=== PATIENT | male | born 1940 | race Caucasian/White ===

== ENCOUNTER 2018-07-30 12:27 | Emergency (ER) | payer MEDICARE ==
[~2018-07-30] VITALS: Ht 175.3 cm; Wt 68.9 kg
--- NOTE | 2018-07-30 12:46 | NUR ---
FROM [facility], C/O GLF S/P DIZZINESS, -KO, + HEAD TRAUMA, NOTED NOSE SWELLING. NO SOB NOTED, WILL CONTINUE TO MONITOR.
[2018-07-30 13:03] LABS: BASOPHILS # (AUTO) 0.1 /CMM (0.0-0.2); EOSINOPHILS % (AUTO) 7.5 % (0.0-6.0); HEMATOCRIT 40 % (39-51); HEMOGLOBIN 13.9 g/dL (13.5-17.5); LYMPHOCYTES # (AUTO) 0.6 /CMM (0.8-4.8); MEAN CORPUSCULAR HGB CONC 35 g/dl (31.0-36.0); MEAN CORPUSCULAR VOLUME 95 fL (80-96); MONOCYTES # (AUTO) 0.5 /CMM (0.1-1.30); MONOCYTES % (AUTO) 6.7 % (2.0-12.0); NEUTROPHILS % (AUTO) 76.8 % (43.0-81.0); PLATELET COUNT (AUTO) 227 /CMM (150-450); RED BLOOD CELL COUNT(AUTO) 4.25 MIL/uL (4.5-6.0); WHITE BLOOD COUNT (AUTO) 7.9 K/uL (4.3-11.0)
--- NOTE | 2018-07-30 13:07 | NUR ---
PATIENT TAKEN TO CT.
--- NOTE | 2018-07-30 13:10 | NUR ---
RE EKG: PT HAS BEEN IN CT.
[2018-07-30 13:12] LABS: CALCIUM, SERUM 8.7 mg/dL (8.5-10.1); CARBON DIOXIDE 29 mmol/L (21-32); CHLORIDE 103 mmol/L (98-107); CREATININE 1.1 mg/dL (0.6-1.3); GLUCOSE 139 mg/dL (74-106); POTASSIUM 3.6 mmol/L (3.5-5.1); SODIUM SERUM 141 mmol/L (136-145); UREA NITROGEN, BLOOD 24 mg/dL (7-18)
[2018-07-30 13:17] LABS: ALANINE AMINOTRANSFERASE 14 U/L (12-78); ALBUMIN 3.6 g/dL (3.4-5.0); ALKALINE PHOSPHATASE 77 U/L (46-116); ASPARTATE AMINOTRANSFERASE 11 U/L (15-37); BILIRUBIN,DIRECT 0.1 mg/dL (0.0-0.2); BILIRUBIN,TOTAL 0.6 mg/dL (0.2-1.0)
--- NOTE | 2018-07-30 13:55 | NUR ---
Patient discharged to home in stable condition. Written and verbal after care instructions given. Patient verbalizes understanding of instruction.
[2018-07-30 13:56] VITALS: BP 155/90
== END 2018-07-30 13:57 | disposition home or self-care (01) ==
LOC: ER 12:30
DX: S02.2XXA Fracture of nasal bones, initial encounter for closed fracture (principal); G20 Parkinson's disease; I10 Essential (primary) hypertension; R42 Dizziness and giddiness; Z98.890 Other specified postprocedural states; W01.0XXA Fall on same level from slipping, tripping and stumbling without subsequent striking against object, initial encounter; Y93.01 Activity, walking, marching and hiking; Y92.89 Other specified places as the place of occurrence of the external cause; Y99.8 Other external cause status
CPT/HCPCS: 36415; 70450-TC; 70486-TC; 72125-TC; 80048-TC; 80076-TC; 84484-TC; 85025-TC

== ENCOUNTER 2018-07-30 20:23 | Emergency (ER) | payer MEDICARE ==
[~2018-07-30] VITALS: Ht 177.8 cm; Wt 68.5 kg
[2018-07-30 20:32] VITALS: BP 169/101
--- NOTE | 2018-07-30 22:06 | NUR ---
Patient discharged to home in stable condition. Written and verbal after care instructions given. Patient verbalizes understanding of instruction. Decided to leave without walker, risk and benefit explained.
== END 2018-07-30 22:06 | disposition home or self-care (01) ==
LOC: ER 20:24
DX: S02.2XXA Fracture of nasal bones, initial encounter for closed fracture (principal); S51.011A Laceration without foreign body of right elbow, initial encounter; I10 Essential (primary) hypertension; G20 Parkinson's disease; Z98.890 Other specified postprocedural states; W18.30XA Fall on same level, unspecified, initial encounter; Y93.01 Activity, walking, marching and hiking; Y92.091 Bathroom in other non-institutional residence as the place of occurrence of the external cause; Y99.8 Other external cause status
CPT/HCPCS: Z7502

== ENCOUNTER 2018-09-24 14:04 | Inpatient (IN) | payer MEDICARE ==
[~2018-09-24] VITALS: Ht 177.8 cm; Wt 66.7 kg
--- NOTE | 2018-09-24 14:10 | NUR ---
BIB [facility]. AAOX4. NAD, BREATHING EVEN AND UNLABORED. C/O FAINTING AND FELL ON HIS LEFT SIDE. PT DENIES CP, DENIES HITTING HIS HEAD. NO COMPLAINTS OF ANY PAIN. TO ER BED 1. MD AT BEDSIDE FOR EVAL.
--- NOTE | 2018-09-24 14:17 | NUR ---
EKG AT BEDSIDE
--- NOTE | 2018-09-24 14:20 | NUR ---
LAB AT BEDSIDE
[2018-09-24 14:28] LABS: BASOPHILS # (AUTO) 0.1 /CMM (0.0-0.2); BASOPHILS % (AUTO) 1.8 % (0.0-2.0); EOSINOPHILS % (AUTO) 8.3 % (0.0-6.0); HEMATOCRIT 36 % (39-51); HEMOGLOBIN 12.4 g/dL (13.5-17.5); LYMPHOCYTES # (AUTO) 0.8 /CMM (0.8-4.8); LYMPHOCYTES % (AUTO) 10.7 % (20.0-44.0); MEAN CORPUSCULAR HGB CONC 35 g/dl (31.0-36.0); MEAN CORPUSCULAR VOLUME 96 fL (80-96); MONOCYTES # (AUTO) 0.4 /CMM (0.1-1.30); MONOCYTES % (AUTO) 5.6 % (2.0-12.0); NEUTROPHILS # (AUTO) 5.7 /CMM (1.8-8.9); NEUTROPHILS % (AUTO) 73.6 % (43.0-81.0); PLATELET COUNT (AUTO) 253 /CMM (150-450); RED BLOOD CELL COUNT(AUTO) 3.74 MIL/uL (4.5-6.0); WHITE BLOOD COUNT (AUTO) 7.7 K/uL (4.3-11.0)
[2018-09-24] MEDS ORDERED: IV NS 0.9% 1,000 ML BAG IV ONE ×2 (14:30→15:00)
[2018-09-24 14:35] LABS: CALCIUM, SERUM 8.5 mg/dL (8.5-10.1); CARBON DIOXIDE 30 mmol/L (21-32); CHLORIDE 104 mmol/L (98-107); CREATININE 1.1 mg/dL (0.6-1.3); GLUCOSE 154 mg/dL (74-106); POTASSIUM 3.3 mmol/L (3.5-5.1); SODIUM SERUM 140 mmol/L (136-145); UREA NITROGEN, BLOOD 24 mg/dL (7-18)
--- NOTE | 2018-09-24 14:36 | NUR ---
PT TO CT
[2018-09-24 14:46] LABS: ALANINE AMINOTRANSFERASE 8 U/L (12-78); ALBUMIN 3.2 g/dL (3.4-5.0); ALKALINE PHOSPHATASE 83 U/L (46-116); ASPARTATE AMINOTRANSFERASE 10 U/L (15-37); BILIRUBIN,DIRECT 0.1 mg/dL (0.0-0.2); BILIRUBIN,TOTAL 0.5 mg/dL (0.2-1.0); TOTAL PROTEIN, SERUM 6.5 g/dL (6.4-8.2)
[2018-09-24] MEDS ORDERED: CARB1TAB40 PO (14:52)
[2018-09-24] MEDS ORDERED: LOVA20TA2 PO (14:52)
[2018-09-24] MEDS ORDERED: RASA1TAB4 PO (14:52)
[2018-09-24] MEDS ORDERED: FINA5TAB11 PO (14:52)
[2018-09-24] MEDS ORDERED: MEMA5TAB15 PO (14:52)
[2018-09-24] MEDS ORDERED: SERT50TA12 PO (14:52)
[2018-09-24] MEDS ORDERED: FLUD0.1T PO (14:52)
[2018-09-24] MEDS ORDERED: CLON0.5T12 PO (14:52)
[2018-09-24] MEDS ORDERED: CARB1TAB21 PO (14:53)
[2018-09-24] MEDS ORDERED: AZITHROMYCIN 500 MG in IV D5W 250 ML IV ONE (15:00)
[2018-09-24] MEDS ORDERED: CEFTRIAXONE 1GM BAG (ER ONLY) 50 ML IV ONE ×2 (15:00→15:07)
--- NOTE | 2018-09-24 15:08 | NUR ---
LAB AT BEDSIDE FOR BLOOD CULTURE
--- NOTE | 2018-09-24 15:28 | NUR ---
REPORT GIVEN TO AL WILLIS. PT GOING OT 323.
[2018-09-24] MEDS ORDERED: IV NS 0.9% 1,000 ML IV PRN (15:29)
[2018-09-24] MEDS ORDERED: ACETAMINOPHEN 325 MG TABLET PO PRN (15:30)
[2018-09-24] MEDS ORDERED: HYDROCODONE/APAP 5/325MG 1 EACH TABLET PO PRN (15:30)
[2018-09-24] MEDS ORDERED: ONDANSETRON HCL/PF 4 MG/2 ML VIAL IVP PRN (15:30)
[2018-09-24] MEDS ORDERED: MAGNESIUM HYDROXIDE 30 ML UDC PO PRN (15:30)
[2018-09-24] MEDS ORDERED: MAG HYDROX/AL HYDROX/SIMETH 30 ML UDC PO PRN (15:30)
[2018-09-24] MEDS ORDERED: HYDROCODONE/APAP 10/325MG 1 EA TABLET PO PRN (15:30)
[2018-09-24] MEDS ORDERED: TEMAZEPAM 15 MG CAPSULE PO PRN (15:30)
--- NOTE | 2018-09-24 15:42 | NUR ---
ACTIVITIES ASSISTANTSTEAM PAN SPONGER NOTES Received Patient comfortable and awake in bed. A/O x 4. VS stable with no acute distress. Breathing even and unlabored on room air with no respiratory distress. Denies pain. Tele monitor in place and operational reading SR with HR-95 and occasional SINUS TACH HR-120. 18g LAC clean, dry, intact and flushing well with NS running at 75ml/hr. Skin assessment pictures taken and placed in chart. Safety precautions in place. Bed locked and set to lowest position with side rails x 2 up. Will continue to monitor.
--- NOTE | 2018-09-24 15:55 | NUR ---
PT TRANPORTED TO UNIT WITH EMT AND RN AT BEDSIDE W/ ACLS PROTOCOL. PT INSTABLE CONDITION FOR TRANSPORT.
[2018-09-24] MEDS ORDERED: POTASSIUM CHLORIDE 20 MEQ TAB.PRT.SR PO ONE (16:00)
[2018-09-24] MEDS ORDERED: [UNRECOGNIZED DRUG - OTHER] XX ONE (16:00)
--- NOTE | 2018-09-24 16:09 | NUR ---
DIANE BENNETT (FRIEND) [phone]
[2018-09-24] MEDS ORDERED: LOVASTATIN (NON FORMULARY) 20 MG TABLET PO SCH (18:00)
[2018-09-24] MEDS: CARBIDOPA/LEVODOPA 25/100 MG 1 UDTAB PO SCH (18:18)
[2018-09-24] MEDS: MEMANTINE HCL 5 MG TABLET PO SCH (18:18)
--- NOTE | 2018-09-24 19:19 | NUR ---
FIRE PRODUCTION OPERATOR CLOSING NOTES Patient comfortable and resting in bed. A/O x 4. VS stable with no acute distress. Breathing even and unlabored on room air with no respiratory distress. Denies pain. Tele monitor in place and operational reading SR with HR-95. 18g LAC clean, dry, intact and flushing well with NS running at 75ml/hr. Safety precautions in place. Bed locked and set to lowest position with side rails x 2 up. Will endorse plan of care to oncoming shift.
--- NOTE | 2018-09-24 19:20 | NUR ---
GRADUATE ADVISOR OPENING NOTES Received patient, A/O x4, awake on supine position on bed. On RA, no SOB/respiratory distress noted. Patient noted with stuttering related to existing condition Parkinson's Disease. Patient denies discomfort at this time. On tele monitor with SR. On fall precautions, call light within easy reach. Will continue to monitor accordingly.
[2018-09-24 20:00] VITALS: BP 153/82
[2018-09-24] MEDS: ATORVASTATIN 10 MG TABLET PO SCH (21:37)
[2018-09-24] MEDS: CARBIDOPA/LEV CR 50/200 MG 1 UDTAB.SA PO SCH (21:37)
[2018-09-25] VITALS: BP_SYST 159; BP_SYST 162; BP_DIAS 66; BP_DIAS 95
[2018-09-25 04:00] VITALS: BP 132/72
[2018-09-25 06:20] LABS: BASOPHILS # (AUTO) 0.1 /CMM (0.0-0.2); BASOPHILS % (AUTO) 0.9 % (0.0-2.0); HEMATOCRIT 36 % (39-51); HEMOGLOBIN 12.7 g/dL (13.5-17.5); LYMPHOCYTES # (AUTO) 0.9 /CMM (0.8-4.8); LYMPHOCYTES % (AUTO) 10.1 % (20.0-44.0); MEAN CORPUSCULAR HGB CONC 35 g/dl (31.0-36.0); MEAN CORPUSCULAR VOLUME 94 fL (80-96); MONOCYTES # (AUTO) 0.5 /CMM (0.1-1.30); MONOCYTES % (AUTO) 5.4 % (2.0-12.0); NEUTROPHILS # (AUTO) 6.7 /CMM (1.8-8.9); NEUTROPHILS % (AUTO) 76.6 % (43.0-81.0); PLATELET COUNT (AUTO) 253 /CMM (150-450); RED BLOOD CELL COUNT(AUTO) 3.85 MIL/uL (4.5-6.0); WHITE BLOOD COUNT (AUTO) 8.8 K/uL (4.3-11.0)
[2018-09-25 06:31] LABS: CARBON DIOXIDE 30 mmol/L (21-32); CHLORIDE 106 mmol/L (98-107); CREATININE 0.9 mg/dL (0.6-1.3); GLUCOSE 108 mg/dL (74-106); MAGNESIUM 1.9 mg/dL (1.8-2.4); PHOSPHORUS 2.7 mg/dL (2.5-4.9); POTASSIUM 3.6 mmol/L (3.5-5.1); SODIUM SERUM 142 mmol/L (136-145); UREA NITROGEN, BLOOD 17 mg/dL (7-18)
[2018-09-25 06:38] LABS: CHOLESTEROL 137 mg/dL (<200); HDL CHOLESTEROL 53 mg/dL (40-60); LDL 73 mg/dL (0-99); TRIGLYCERIDES 75 mg/dL (30-150)
--- NOTE | 2018-09-25 07:06 | NUR ---
OPTOMETRIC TECHNICIAN CLOSING NOTES Patient comfortably awake on supine position on bed. No complaints of pain/discomfort noted. All due meds given, all nursing needs attended. Afebrile the whole shift, no new complaints made. On fall precautions, call light within easy reach. Endorsed to the next shift.
--- NOTE | 2018-09-25 08:00 | NUR ---
MS RN OPENING NOTES Received Patient comfortable and resting in bed. A/O x 4. VS stable with no acute distress. Breathing even and unlabored on room air with no respiratory distress, SPO2 96%. Denies pain. D/C Tele monitor per Jesse YIP. 18g LAC clean, dry, intact and flushing well with NS running at 75ml/hr. Safety precautions in place. Bed locked and set to lowest position with side rails x 2 up. All needs rendered at this time. Will continue to monitor.
[2018-09-25 08:45] VITALS: BP 139/76
[2018-09-25] MEDS: POTASSIUM CHLORIDE 20 MEQ TAB.PRT.SR PO SCH ×3 (09:33→10:37)
[2018-09-25] MEDS: CARBIDOPA/LEVODOPA 25/100 MG 1 UDTAB PO SCH ×3 (09:34→16:53)
[2018-09-25] MEDS: FINASTERIDE (5 MG) 5 MG TABLET PO SCH (09:34)
[2018-09-25] MEDS: FLUDROCORTISONE 0.1 MG TABLET PO SCH (09:34)
[2018-09-25] MEDS: SERTRALINE HCL 50 MG TABLET PO SCH (09:34)
[2018-09-25] MEDS: MEMANTINE HCL 5 MG TABLET PO SCH ×2 (09:34→16:53)
--- NOTE | 2018-09-25 11:54 | NUR ---
MS RN NOTES Patient pulled out 18g PIV on LAC. Reinserted 20g PIV on RIGHT FOREARM x 1 attempt. PIV clean, dry, intact, and flushing well with IVF NS running at 250ml/hr. Patient tolerated well. Will continue to monitor.
[2018-09-25 16:00] VITALS: BP 156/98
[2018-09-25] MEDS: CEFTRIAXONE 1 G in IV D5W 50 ML IV SCH (16:36)
[2018-09-25] MEDS: AZITHROMYCIN 500 MG in IV D5W 250 ML IV SCH (16:50)
[2018-09-25] MEDS: LACTOBACILLUS RHAMNOSUS GG 1 EACH CAP.SPRINK PO SCH (16:52)
--- NOTE | 2018-09-25 19:30 | NUR ---
MS RN NOTES Received patient A/O x3, awake, on bed with NS infusing well @ 250ml/hr as ordered. No complaints made. No signs of discomfort noted. On fall precautions, call light within easy reach. Will continue to monitor accordingly.
--- NOTE | 2018-09-25 19:52 | NUR ---
MS RN CLOSING NOTES Patient comfortable and resting in bed. A/O x 4. VS stable with no acute distress. Breathing even and unlabored on room air with no respiratory distress. Denies pain. 20g RAC clean, dry, intact and flushing well with NS running at 250ml/hr. Safety precautions in place. Bed locked and set to lowest position with side rails x 2 up. All needs rendered at this time. Will endorse plan of care to oncoming shift.
[2018-09-25 20:00] VITALS: BP 150/92
[2018-09-25] MEDS: CARBIDOPA/LEV CR 50/200 MG 1 UDTAB.SA PO SCH (21:11)
[2018-09-25] MEDS: ATORVASTATIN 10 MG TABLET PO SCH (21:12)
[2018-09-25] MEDS: IV NS 0.9% 1,000 ML IV PRN (23:46)
[2018-09-26] MEDS: IV NS 0.9% 1,000 ML IV PRN ×2 (04:56→13:34)
[2018-09-26 06:42] LABS: CALCIUM, SERUM 7.8 mg/dL (8.5-10.1); CARBON DIOXIDE 26 mmol/L (21-32); CHLORIDE 106 mmol/L (98-107); CREATININE 0.8 mg/dL (0.6-1.3); GLUCOSE 110 mg/dL (74-106); POTASSIUM 3.5 mmol/L (3.5-5.1); SODIUM SERUM 141 mmol/L (136-145); UREA NITROGEN, BLOOD 12 mg/dL (7-18)
--- NOTE | 2018-09-26 06:44 | NUR ---
MS RN CLOSING NOTES Patient asleep on bed comfortably. No SOB/respiratory distress noted. No discomfort noted at this time. All due meds given as ordered, no ASE noted. All nursing needs attended, no new complaints made. On fall precautions, call light within easy reach. Endorsed to the next shift.
--- NOTE | 2018-09-26 07:33 | NUR ---
Nurse Notes: received report from the night nurse Vance Grimaldo RN, patient is resting in bed, IV is infusing at 250 cc per hour. No complaints of pain given, in no respiratory distress.
[2018-09-26 08:00] VITALS: BP 176/94
[2018-09-26] MEDS: FINASTERIDE (5 MG) 5 MG TABLET PO SCH (10:19)
[2018-09-26] MEDS: SERTRALINE HCL 50 MG TABLET PO SCH (10:19)
[2018-09-26] MEDS: FLUDROCORTISONE 0.1 MG TABLET PO SCH (10:20)
[2018-09-26] MEDS: CARBIDOPA/LEVODOPA 25/100 MG 1 UDTAB PO SCH ×2 (10:20→13:28)
[2018-09-26] MEDS: MEMANTINE HCL 5 MG TABLET PO SCH (10:21)
[2018-09-26] MEDS: LACTOBACILLUS RHAMNOSUS GG 1 EACH CAP.SPRINK PO SCH (10:21)
[2018-09-26] MEDS: CEFTRIAXONE 1 G in IV D5W 50 ML IV SCH (14:54)
--- NOTE | 2018-09-26 14:54 | NUR ---
Nurse Notes: sister Binta will come after her errands. Patient is discharge to her assistance living. will hang his IV antibiotics Rocelphin, and then the zithromycin IVPB.
[2018-09-26] MEDS: AZITHROMYCIN 500 MG in IV D5W 250 ML IV SCH (15:26)
--- NOTE | 2018-09-26 15:26 | NUR ---
Nurse Notes: sister not here, zithromycin is infusing over 1 hour. patient will not be on any oral antibiotics. No request for any pain medications.
[2018-09-26 16:00] VITALS: BP 157/80
--- NOTE | 2018-09-26 16:39 | NUR ---
Discharge Note: return from her errands, Patient received his last dose of ceftriaxone and azithromycin IVPB. No request for pain medications. Heplock was removed. patient to follow up with primary doctor, and Dr Molina in one week, patient to be driven to [facility].
== END 2018-09-26 16:50 | DRG 73 ==
LOC: ER 14:09 → TELE 15:01 → MED 09-25 08:33
PROVIDERS: ADMIT Nurse Practitioner Acute Care; ATTEND Nurse Practitioner Acute Care
DX: G90.8 Other disorders of autonomic nervous system (principal); N17.0 Acute kidney failure with tubular necrosis; J15.9 Unspecified bacterial pneumonia; E44.1 Mild protein-calorie malnutrition; E27.40 Unspecified adrenocortical insufficiency; E78.5 Hyperlipidemia, unspecified; E87.6 Hypokalemia; E88.09 Other disorders of plasma-protein metabolism, not elsewhere classified; F41.9 Anxiety disorder, unspecified; F32.9 Major depressive disorder, single episode, unspecified; I10 Essential (primary) hypertension; N40.0 Benign prostatic hyperplasia without lower urinary tract symptoms; M62.50 Muscle wasting and atrophy, not elsewhere classified, unspecified site; Z68.21 Body mass index [BMI] 21.0-21.9, adult; F02.80 Dementia in other diseases classified elsewhere, unspecified severity, without behavioral disturbance, psychotic disturbance, mood disturbance, and anxiety; G20 Parkinson's disease
CPT/HCPCS: 36415; 70450-TC; 71045-TC; 80048-TC; 80061-TC; 80076-TC; 83605-TC; 83735-TC; 84100-TC; 84484-TC; 85025-TC; 85730-TC; 87040-TC; 87081-TC; 93307-TC; 97116-TC; 97530-TC; G0378; J0456; J0696; J7030; J7060

== ENCOUNTER → 2018-10-31 | Emergency (ER) | payer MEDICARE ==
[~2018-10-31] VITALS: Ht 175.3 cm; Wt 64.4 kg
[~2018-10-31] MED LIST: CARB1TAB21 PO; CARB1TAB40 PO; CLON0.5T12 PO; FINA5TAB11 PO; FLUD0.1T PO; LOVA20TA2 PO; MEMA5TAB15 PO; POTASSIUM CHLORIDE 20 MEQ TAB.PRT.SR PO ONE; RASA1TAB4 PO; SERT50TA12 PO
[2018-10-31 19:56] LABS: BASOPHILS # (AUTO) 0.2 /CMM (0.0-0.2); EOSINOPHILS % (AUTO) 11.9 % (0.0-6.0); HEMATOCRIT 38 % (39-51); HEMOGLOBIN 13.2 g/dL (13.5-17.5); LYMPHOCYTES # (AUTO) 1.2 /CMM (0.8-4.8); LYMPHOCYTES % (AUTO) 12.3 % (20.0-44.0); MEAN CORPUSCULAR HGB CONC 34 g/dl (31.0-36.0); MEAN CORPUSCULAR VOLUME 95 fL (80-96); MONOCYTES # (AUTO) 0.7 /CMM (0.1-1.30); MONOCYTES % (AUTO) 6.8 % (2.0-12.0); NEUTROPHILS # (AUTO) 6.5 /CMM (1.8-8.9); PLATELET COUNT (AUTO) 224 /CMM (150-450); RED BLOOD CELL COUNT(AUTO) 4.05 MIL/uL (4.5-6.0); WHITE BLOOD COUNT (AUTO) 9.7 K/uL (4.3-11.0)
[2018-10-31 20:07] LABS: CALCIUM, SERUM 8.7 mg/dL (8.5-10.1); CARBON DIOXIDE 33 mmol/L (21-32); CHLORIDE 103 mmol/L (98-107); CREATININE 1.1 mg/dL (0.6-1.3); GLUCOSE 127 mg/dL (74-106); POTASSIUM 2.9 mmol/L (3.5-5.1); SODIUM SERUM 142 mmol/L (136-145); UREA NITROGEN, BLOOD 21 mg/dL (7-18)
[2018-10-31 20:18] LABS: APPEARANCE,URINE Slightly Cloudy (CLEAR); BILIRUBIN,URINE Negative (NEGATIVE); BLOOD, URINE Large Ery/uL (NEGATIVE); COLOR,URINE Yellow (YELLOW); KETONES,URINE Negative (NEGATIVE); LEUKOCYTE ESTERASE ,URINE Negative (NEGATIVE); NITRITE, URINE Negative (NEGATIVE); PROTEIN,URINE 30 mg/dl (NEGATIVE); UGLUCOSE Negative (NEGATIVE); UROBILINOGEN,URINE 0.2 EU/dL (0.2)
[2018-10-31 20:36] LABS: RBC,URINE 81-100 /HPF (0-2)
[2018-10-31 20:37] LABS: BACTERIA,URINE Few /HPF (None Seen); SQUAMOUS EPITHELIAL CELL,UR Few /HPF (None Seen); WBC,URINE 0-3 /HPF (0-3)
[2018-10-31 21:48] VITALS: BP 148/92
--- NOTE | 2018-10-31 21:50 | NUR ---
Patient discharged to home in stable condition. Written and verbal after care instructions given. Patient verbalizes understanding of instruction.VITAL SIGNS STABLE. IV removed. Catheter intact and site benign. Pressure and 4x4 applied to site. No bleeding noted.
== END | disposition home or self-care (01) ==
LOC: ER 19:27
DX: R31.0 Gross hematuria (principal); G20 Parkinson's disease; I10 Essential (primary) hypertension; Z98.890 Other specified postprocedural states
CPT/HCPCS: 36415; 80048-TC; 81000-TC; 85025-TC; 85730-TC; 87086-TC

== ENCOUNTER 2018-12-11 17:23 | Inpatient (IN) | payer MEDICARE ==
[~2018-12-11] VITALS: Ht 175.3 cm; Wt 43.1 kg
[~2018-12-11 17:23] MED LIST changes: -POTASSIUM CHLORIDE 20 MEQ TAB.PRT.SR PO ONE
--- NOTE | 2018-12-11 17:52 | NUR ---
BIB SISTER FROM [facility], HAD A FALL TODAY, DENIES ANY PAIN, NO TRAUMA, -KO. HAS HX OF PARKINSONS. ADMITS FEELING SLIGHTLY CONFUSED AND WEAK. NO EVIDENCE OF INJURY, NO ACUTE DISTRESS NOTED. SKIN INTACT. SISTER AT BEDSIDE AND READY FOR EVAL.
--- NOTE | 2018-12-11 18:37 | NUR ---
PT PROVIDED URINAL, BUT WAS UNABLE TO COLLECT ENOUGH. Addendum: 12/11/18 at 1844 by ANGELA MD RIDDLE
[2018-12-11 18:45] LABS: BASOPHILS # (AUTO) 0.1 /CMM (0.0-0.2); BASOPHILS % (AUTO) 0.4 % (0.0-2.0); EOSINOPHILS % (AUTO) 0.7 % (0.0-6.0); HEMATOCRIT 38 % (39-51); HEMOGLOBIN 13.1 g/dL (13.5-17.5); LYMPHOCYTES # (AUTO) 0.3 /CMM (0.8-4.8); LYMPHOCYTES % (AUTO) 1.8 % (20.0-44.0); MEAN CORPUSCULAR HGB CONC 35 g/dl (31.0-36.0); MEAN CORPUSCULAR VOLUME 93 fL (80-96); MONOCYTES # (AUTO) 0.9 /CMM (0.1-1.30); MONOCYTES % (AUTO) 5.3 % (2.0-12.0); NEUTROPHILS # (AUTO) 14.7 /CMM (1.8-8.9); NEUTROPHILS % (AUTO) 91.8 % (43.0-81.0); PLATELET COUNT (AUTO) 149 /CMM (150-450); RED BLOOD CELL COUNT(AUTO) 4.04 MIL/uL (4.5-6.0)
[2018-12-11] MEDS ORDERED: MESA0.37 PO (18:56)
[2018-12-11] MEDS ORDERED: CYAN100096 PO (18:56)
[2018-12-11] MEDS ORDERED: CHOL100044 PO (18:56)
[2018-12-11] MEDS ORDERED: SACC250C PO (18:56)
[2018-12-11 19:01] LABS: ALANINE AMINOTRANSFERASE 8 U/L (12-78); ALBUMIN 3.7 g/dL (3.4-5.0); ALKALINE PHOSPHATASE 92 U/L (46-116); ASPARTATE AMINOTRANSFERASE 16 U/L (15-37); BILIRUBIN,DIRECT 0.3 mg/dL (0.0-0.2); BILIRUBIN,TOTAL 1.3 mg/dL (0.2-1.0); CARBON DIOXIDE 36 mmol/L (21-32); CHLORIDE 99 mmol/L (98-107); GLUCOSE 170 mg/dL (74-106); TOTAL PROTEIN, SERUM 7.5 g/dL (6.4-8.2); UREA NITROGEN, BLOOD 19 mg/dL (7-18)
[2018-12-11 19:06] LABS: SODIUM SERUM 141 mmol/L (136-145)
[2018-12-11 19:08] LABS: POTASSIUM 2.3 mmol/L (3.5-5.1)
[2018-12-11] MEDS ORDERED: POTASSIUM CL. PREMIX PERIPHER. 50 ML IV SCH (19:30)
[2018-12-11] MEDS ORDERED: POTASSIUM CHLORIDE 20 MEQ TAB.PRT.SR PO ONE ×2 (19:30→19:31)
[2018-12-11] MEDS ORDERED: POTASSIUM CL. PREMIX PERIPHER. 50 ML ONE (19:31)
[2018-12-11 20:00] VITALS: BP 148/83
--- NOTE | 2018-12-11 20:25 | NUR ---
URINE COLLECTED AND SENT TO STAT LAB
--- NOTE | 2018-12-11 21:15 | NUR ---
CALLED 3W TO GIVE REPORT. NURSE IS WITH PT AND WILL CALL BACK.
[2018-12-11 21:22] VITALS: BP 166/87
--- NOTE | 2018-12-11 21:24 | NUR ---
REPORT GIVEN TO AL GONZALEZ FOR 321-1 TELE. DAVID VILLEGAS, AMS/WEAKNESS
[2018-12-11 21:31] LABS: APPEARANCE,URINE Clear (CLEAR); BILIRUBIN,URINE Negative (NEGATIVE); BLOOD, URINE Negative Ery/uL (NEGATIVE); COLOR,URINE Yellow (YELLOW); KETONES,URINE Negative (NEGATIVE); LEUKOCYTE ESTERASE ,URINE Negative (NEGATIVE); NITRITE, URINE Negative (NEGATIVE); PH,URINE 7.5 (5.0-8.0); PROTEIN,URINE Negative (NEGATIVE); UGLUCOSE Negative (NEGATIVE); UROBILINOGEN,URINE 0.2 EU/dL (0.2)
--- NOTE | 2018-12-11 21:40 | NUR ---
ADMISSION NOTES: RECEIVED REPORT FROM FIDELINA STATISTICAL CLERK ADVERTISING. PT WAS BROUGHT TO THE UNIT VIA GURNEY, TRANSFERRED TO BED, KEPT COMFORTABLE. PT IS A/O X2, ON RA, RESPIRATIONS EVEN AND UNLABORED. DENIES ANY PAIN OR DISCOMFORT THIS TIME. IV ACCESS ON RIGHT AC G 20, PATENT AND FLUSHING WELL, ON HL. TELE MONITOR PLACED, PT ON SINUS RHYTHM HR 70. MET WITH PT'S SISTER, SHYAM MAK, WHO BROUGHT PT TO ER, ALSO PT'S DPOA/ADVANCE DIRECTIVE. DISCUSSED PLAN OF CARE. ORIENTED PT TO UNIT POLICY, HOURLY ROUNDING AND USE OF CALL LIGHT. SKIN ASSESSMENT PERFORMED, NOTED BRUISES ON CERTAIN AREAS OF THE BODY WHICH COULD BE THE RESULT OF MULTIPLE EPISODE OF FALL ACCDG TO PT'S SISTER. VS TAKEN AND RECORDED. INVENTORY OF BELONGING COMPLETED BY MARIA D ZEPEDA, ONLY EYEGLASSES WILL BE KEPT AT BED SIDE, PT'S SISTER WILL BRING ALL BELONGINGS BACK HOME. ADMISSION INTERVIEW COMPLETED WITH HELP OF PT'S SISTER. ALL MEDICATIONS VERIFIED WITH PT AND SISTER. SAFETY PRECAUTIONS FOR FALL INITIATED, CALL LIGHT IN REACH, WILL CONTINUE MONITORING PT.
--- NOTE | 2018-12-11 21:51 | NUR ---
[facility]
--- NOTE | 2018-12-11 22:00 | NUR ---
RN NOTES: ACTUAL WEIGHT 95 LBS SHOWN IN BED SCALE.
--- NOTE | 2018-12-11 22:28 | NUR ---
RN NOTES: NOTIFIED MD ROVING FRAME TENDER OF PT'S ARRIVAL IN THE UNIT, NEEDS ADMITTING ORDERS. ALSO NOTIFIED ABOUT PT WISHES TO BE DNR AND DNI, SHYAM MAK, PT'S SISTER WHO IS DPOA AND HAS ADVANCE DIRECTIVE WILL PROVIDE COPY OF THE DOCUMENTS IN AM.
--- NOTE | 2018-12-11 22:30 | NUR ---
RN NOTES: PT AND PT'S SISTER REQUESTED TO USE DIAPER FOR THE PT.
--- NOTE | 2018-12-11 22:40 | NUR ---
RN NOTES: NOTIFIED MD REGARDING PT'S REQUEST TO TAKE HIS NIGHT TIME MEDS SUCH CARBIDOPA/LEVODOPA 50/200 MG, MEMANTINE 5MG TAB , AND CLONAZEPAM 0.25 MG PO FOR ANXIETY. THESE MEDICATIONS ARE PART OF PT'S HOME MEDS.
[2018-12-11] MEDS ORDERED: MAGNESIUM HYDROXIDE 30 ML UDC PO PRN (23:30)
[2018-12-11] MEDS ORDERED: Z GUARD REMEDY 2 OZ OINT TP PRN (23:30)
[2018-12-11] MEDS ORDERED: HYDROCODONE/APAP 5/325MG 1 EACH TABLET PO PRN (23:30)
[2018-12-11] MEDS ORDERED: ACETAMINOPHEN 325 MG TABLET PO PRN (23:30)
[2018-12-11] MEDS ORDERED: MAG HYDROX/AL HYDROX/SIMETH 30 ML UDC PO PRN (23:30)
[2018-12-11] MEDS ORDERED: ONDANSETRON HCL/PF 4 MG/2 ML VIAL IVP PRN (23:30)
--- NOTE | 2018-12-11 23:30 | NUR ---
RN NOTES: STILL AWAITING FOR ORDER REGARDING 3 NIGHT TIME MEDICATIONS.
[2018-12-12] VITALS (8 sets, daily range): BP systolic 149–163; BP diastolic 72–93
--- NOTE | 2018-12-12 00:05 | NUR ---
RN NOTES: PER OKAY FOR PT TO CONTINUE HIS MEDICATIONS, T/O OKAY TO TAKE CARBIDOPA/LEVODOPA 50/200 MG, MEMANTINE 5MG TAB BUT HOLD CLONAZEPAM FOR NOW. ORDER READ BACK, NOTED, AND CARRIED OUT.
[2018-12-12] MEDS: IV NS 0.9% 1,000 ML IV PRN ×2 (00:23→16:37)
[2018-12-12] MEDS ORDERED: MEMANTINE HCL 5 MG TABLET PO SCH (00:30)
[2018-12-12] MEDS ORDERED: CARBIDOPA/LEV CR 50/200 MG 1 UDTAB.SA PO SCH (00:30)
--- NOTE | 2018-12-12 05:45 | NUR ---
RN NOTES: POLICE SHIFT COMMANDER PROVIDED BED BATH TO PT. AFTERWARDS, ASSISTED PT TO SIT ON A CHAIR, ZERO BED AGAIN, ASSISTED PT BACK TO THE BED, WEIGHTED THE PT, STILL SHOWING 95 LBS. BED ALARM SECURED.
--- NOTE | 2018-12-12 06:43 | NUR ---
RN CLOSING NOTES: PT IN BED, AWAKE, REMAINS A/O X2, BASELINE, WITH STATTERED SPEECH DUE TO PARKINSONs. RESPIRATIONS EVEN AND UNLABORED, DENIES ANY PAIN OR DISCOMFORT AT THIS TIME. REMAINS ON SINUS RHYTHM HR 66. IV ACCESS REMAINS PATENT AND FLUSHING WELL, INFUSING WITH NS AT 75ML/HR. BLE KEPT OFFLOADED ON PILLOWS.SAFETY PRECAUTIONS FOR FALL REMAINS ENGAGED, CALL LIGHT IN REACH, WILL ENDORSE TO DAY RN FOR CONTINUITY OF CARE.
[2018-12-12 07:32] LABS: BASOPHILS # (AUTO) 0.1 /CMM (0.0-0.2); BASOPHILS % (AUTO) 0.8 % (0.0-2.0); EOSINOPHILS % (AUTO) 4.4 % (0.0-6.0); HEMATOCRIT 36 % (39-51); HEMOGLOBIN 12.6 g/dL (13.5-17.5); LYMPHOCYTES % (AUTO) 9.7 % (20.0-44.0); MEAN CORPUSCULAR HGB CONC 36 g/dl (31.0-36.0); MEAN CORPUSCULAR VOLUME 93 fL (80-96); MONOCYTES # (AUTO) 0.6 /CMM (0.1-1.30); MONOCYTES % (AUTO) 5.4 % (2.0-12.0); NEUTROPHILS # (AUTO) 8.6 /CMM (1.8-8.9); NEUTROPHILS % (AUTO) 79.7 % (43.0-81.0); PLATELET COUNT (AUTO) 157 /CMM (150-450); RED BLOOD CELL COUNT(AUTO) 3.83 MIL/uL (4.5-6.0); WHITE BLOOD COUNT (AUTO) 10.7 K/uL (4.3-11.0)
--- NOTE | 2018-12-12 07:40 | NUR ---
AGRICULTURAL SERVICE WORKER OPENING NOTES Patient received on room air, no sob noted, a/o x2-3. Patient remains with R AC #20 NS @ 75 mL per hour. Med Recon still pending, clonazepam to be held per Jack, and DPOA is still pending at this time with Binta saying she is on her way to bring it over. Bed at the lowest setting, call light within reach.
[2018-12-12 08:09] LABS: ALANINE AMINOTRANSFERASE 7 U/L (12-78); ALBUMIN 3.1 g/dL (3.4-5.0); ALKALINE PHOSPHATASE 72 U/L (46-116); ASPARTATE AMINOTRANSFERASE 14 U/L (15-37); BILIRUBIN,TOTAL 1.1 mg/dL (0.2-1.0); CALCIUM, SERUM 8.3 mg/dL (8.5-10.1); CARBON DIOXIDE 31 mmol/L (21-32); CHLORIDE 104 mmol/L (98-107); CREATININE 0.9 mg/dL (0.6-1.3); GLUCOSE 104 mg/dL (74-106); MAGNESIUM 1.8 mg/dL (1.8-2.4); SODIUM SERUM 143 mmol/L (136-145); TOTAL PROTEIN, SERUM 6.5 g/dL (6.4-8.2); UREA NITROGEN, BLOOD 14 mg/dL (7-18)
[2018-12-12 08:12] LABS: CHOLESTEROL 131 mg/dL (<200); HDL CHOLESTEROL 52 mg/dL (40-60); LDL 69 mg/dL (0-99); THYROID STIMULATING HORMONE 1.564 uIU/mL (0.358-3.74); TRIGLYCERIDES 77 mg/dL (30-150)
[2018-12-12 08:14] LABS: POTASSIUM 2.6 mmol/L (3.5-5.1)
[2018-12-12] MEDS: POTASSIUM CL. PREMIX PERIPHER. 50 ML IV SCH ×4 (09:37→12:30)
[2018-12-12] MEDS: Potassium Phosphate meq 11 MEQ in IV D5W 100 ML IV SCH ×2 (10:00→13:00)
[2018-12-12] MEDS ORDERED: clonazePAM 0.5 MG TABLET PO PRN (16:00)
[2018-12-12] MEDS ORDERED: CLONIDINE HCL 0.1 MG TABLET PO PRN (17:00)
[2018-12-12] MEDS ORDERED: AMLODIPINE BESYLATE 5 MG TABLET PO ONE (17:00)
[2018-12-12] MEDS: CARBIDOPA/LEVODOPA 25/100 MG 1 UDTAB PO SCH (17:30)
[2018-12-12] MEDS: MEMANTINE HCL 5 MG TABLET PO SCH (17:30)
[2018-12-12] MEDS: FLUDROCORTISONE 0.1 MG TABLET PO SCH (17:31)
--- NOTE | 2018-12-12 18:50 | NUR ---
RN MS OPENING NOTES Patient remains on room air, no sob noted, patient a/o x2 and acts confused at times. Patient remains on Left FA #22, 75 mL per hour NS at this time. Potassium replaced. Patient sister at bedside most of the time. Bed at the lowest setting, call light within reach. Will give report to NOC RN for SELIN bedside.
[2018-12-12] MEDS: RASAGILINE MESYLATE 1 MG PO SCH (19:30)
--- NOTE | 2018-12-12 19:42 | NUR ---
MS/RN OPENING NOTES RECEIVED PATIENT IN BED, AWAKE, ALERT X2, ABLE TO STATE NAME AND DATE, WITH DIRECT EYE CONTACT, RESPIRATIONS EVEN AND UNLABORED, SKIN WARM TO TOUCH, PREFER TO USE LIGHT SHEETS AND NO GOWN, IV ON LEFT AC PATENT , REQUIRE MONITORING FOR ASSISTANCE AND SAFTEY. BED LOCKED, CALL LIGHJTS WITHIN REACH, WILL MONITOR.
[2018-12-12] MEDS: CARBIDOPA/LEV CR 50/200 MG 1 UDTAB.SA PO SCH (21:06)
--- NOTE | 2018-12-13 06:23 | NUR ---
321-1 MS/RN NOTES PATIENT ABLE TO SLEEP DURING THE SHIFT. MONITORED FOR SAFETY. AWAKE BUT FORGETFUL REQUIRE MONITOIRNG AND ASSISTANCE IN ADLS. IV ON LEFT AC INFUSING. BED LOCKED, CALL LIGHTS WITHIN REACH. WILL MONITOR.
--- NOTE | 2018-12-13 07:30 | NUR ---
MS RN OPENING NOTE RECEIVED PT SITTING UP IN BED, ALERT AND ORIENTED X1-2, NO ACUTE DISTRESS NOTED, BREATHING IS EVEN AND UNLABORED ON ROOM AIR. LEFT FA #22G IS INFUSING ORDERED WITHOUT REDNESS OR SWELLING. ASPIRATION PRECAUTIONS MAINTAINED, ALL NEEDS ATTENDED TO. BED IS LOCKED AND IN LOWEST POSITION, SIDE RAILS UP X2, BED ALARM ON, CALL LIGHT AND POSSESSIONS WITHIN REACH.
[2018-12-13 08:00] VITALS: BP 159/100
[2018-12-13] MEDS: SERTRALINE HCL 25 MG TABLET PO SCH (08:42)
[2018-12-13] MEDS: CARBIDOPA/LEVODOPA 25/100 MG 1 UDTAB PO SCH ×3 (08:42→17:40)
[2018-12-13] MEDS: CHOLECALCIFEROL 1,000 UNIT TABLET (VIT D3) PO SCH (08:42)
[2018-12-13] MEDS: FLUDROCORTISONE 0.1 MG TABLET PO SCH ×2 (08:42→17:40)
[2018-12-13] MEDS: IV NS 0.9% 1,000 ML IV PRN (08:42)
[2018-12-13] MEDS: MEMANTINE HCL 5 MG TABLET PO SCH ×2 (08:42→17:40)
[2018-12-13] MEDS: ACIDOPHILUS/BULGARICUS 1 EACH TAB.CHEW PO SCH (08:42)
[2018-12-13 09:22] LABS: BASOPHILS # (AUTO) 0.1 /CMM (0.0-0.2); EOSINOPHILS % (AUTO) 3.4 % (0.0-6.0); HEMATOCRIT 39 % (39-51); HEMOGLOBIN 13.6 g/dL (13.5-17.5); LYMPHOCYTES # (AUTO) 0.7 /CMM (0.8-4.8); LYMPHOCYTES % (AUTO) 9.3 % (20.0-44.0); MEAN CORPUSCULAR HGB CONC 35 g/dl (31.0-36.0); MEAN CORPUSCULAR VOLUME 93 fL (80-96); MONOCYTES # (AUTO) 0.4 /CMM (0.1-1.30); MONOCYTES % (AUTO) 4.8 % (2.0-12.0); NEUTROPHILS % (AUTO) 81.5 % (43.0-81.0); PLATELET COUNT (AUTO) 181 /CMM (150-450); RED BLOOD CELL COUNT(AUTO) 4.21 MIL/uL (4.5-6.0); WHITE BLOOD COUNT (AUTO) 7.4 K/uL (4.3-11.0)
[2018-12-13 09:24] LABS: CALCIUM, SERUM 8.3 mg/dL (8.5-10.1); CARBON DIOXIDE 32 mmol/L (21-32); CHLORIDE 103 mmol/L (98-107); CREATININE 0.9 mg/dL (0.6-1.3); GLUCOSE 137 mg/dL (74-106); MAGNESIUM 1.8 mg/dL (1.8-2.4); PHOSPHORUS 1.8 mg/dL (2.5-4.9); SODIUM SERUM 141 mmol/L (136-145); UREA NITROGEN, BLOOD 11 mg/dL (7-18)
--- NOTE | 2018-12-13 09:25 | NUR ---
MS RN NOTE CRITICAL K LEVEL OF 2.8 REPORTED TO PRIMARY HOSPITALIST PER PROTOCOL. NO NEW ORDERS AT THIS TIME, PER HE WILL REVIEW CHART AND PLACE ORDERS SHORTLY.
[2018-12-13 09:26] LABS: POTASSIUM 2.8 mmol/L (3.5-5.1)
[2018-12-13] MEDS ORDERED: POTASSIUM PHOSPHATE MM 15 MMOL in IV D5W 250 ML IV SCH (11:30)
--- NOTE | 2018-12-13 11:30 | NUR ---
WOUND CARE CONSULT: SEEN PATENT AT BEDSIDE,PATIENT PRESENTS WITH MULTIPLE SKIN DISCOLORATION ON ARMS AND SACROCOCCYX AREA, HEALING WELL , PRESENT ON ADMISSION, CURRENT TIM SCORE IS 14 RECOMMENDATION MADE FOR SKIN PROTECTION AND DISCUSSED WITH NURSING STAFF, IN AGREEMENT WITH PLAN OF CARE , WILL SEE PRN Addendum: 12/13/18 at 1142 by JORDI GROVE RN Amended: Links added.
[2018-12-13] MEDS ORDERED: Potassium Chloride 40 MEQ in IV NS 0.9% 1,000 ML IV PRN (11:34)
[2018-12-13] MEDS ORDERED: Potassium Phosphate meq 11 MEQ in IV NS 0.9% 100 ML IV SCH (12:00)
[2018-12-13] MEDS: POTASSIUM CL. PREMIX PERIPHER. 50 ML IV SCH ×4 (12:51→19:05)
[2018-12-13] MEDS: POTASSIUM PHOSPHATE MM 7.5 MMOL in IV D5W 100 ML IV SCH ×2 (15:27→18:43)
[2018-12-13] MEDS: ENSURE ENLIVE CHOC 237 ML CAN PO SCH (15:33)
[2018-12-13] MEDS: RASAGILINE MESYLATE 1 MG PO SCH (17:40)
--- NOTE | 2018-12-13 18:48 | NUR ---
MS RN CLOSING NOTE PT SITTING UP IN BED, ALERT AND ORIENTED X1-2, NO ACUTE DISTRESS NOTED, BREATHING IS EVEN AND UNLABORED ON ROOM AIR. LEFT FA #22G AND RIGHT FA #22G PERIPHERAL IVS ARE INFUSING ORDERED WITHOUT REDNESS OR SWELLING. ADLS PROVIDED AND PT ASSISTED TO TURN AND REPOSITION Q2H FOR THE DURATION OF THE SHIFT. ASPIRATION PRECAUTIONS MAINTAINED, ALL NEEDS ATTENDED TO, SISTER AT THE BEDSIDE. BED IS LOCKED AND IN LOWEST POSITION, SIDE RAILS UP X2, BED ALARM ON, CALL LIGHT AND POSSESSIONS WITHIN REACH. WILL ENDORSE TO MARGARINE MAKER NURSE FOR CONTINUITY OF CARE.
--- NOTE | 2018-12-13 20:00 | NUR ---
MS RN NOTES RECEIVED PATIENT AWAKE IN BED WITH NO DISTRESS NOTED. CALL LIGHT WITHIN REACH. FAMILY AND SITTER AT BEDSIDE. NO C/O PAIN OR DISCOMFORT. PERIPHERAL LINES INTACT BED PATENT. BED IN LOW LOCK SETTING. ALL BELONGINGS KEPT NEAR BEDSIDE. WILL CONTINUE TO MONITOR.
[2018-12-13] MEDS: CARBIDOPA/LEV CR 50/200 MG 1 UDTAB.SA PO SCH (21:20)
--- NOTE | 2018-12-14 06:32 | NUR ---
MS RN NOTES PATIENT ASLEEP IN BED WITH NO DISTRESS NOTED. CALL LIGHT WITHIN REACH. SITTER AT BEDSIDE. NO FACIAL GRIMACING OR GROANING TO INDICATE PAIN OR DISCOMFORT. ALL DUE MEDS GIVEN ORDERED WITH NO ASE. PERIPHERAL LINE INTACT AND PATENT. BED IN LOW LOCK SETTING. ALL BEONGINGS KEPT NEAR BEDSIDE. WILL ENDOSRE TO ONCOMING SHIFT.
[2018-12-14 06:39] LABS: BASOPHILS # (AUTO) 0.1 /CMM (0.0-0.2); BASOPHILS % (AUTO) 1.1 % (0.0-2.0); EOSINOPHILS % (AUTO) 9.2 % (0.0-6.0); HEMATOCRIT 41 % (39-51); HEMOGLOBIN 14.2 g/dL (13.5-17.5); LYMPHOCYTES # (AUTO) 1.1 /CMM (0.8-4.8); LYMPHOCYTES % (AUTO) 12.6 % (20.0-44.0); MEAN CORPUSCULAR HGB CONC 35 g/dl (31.0-36.0); MEAN CORPUSCULAR VOLUME 93 fL (80-96); MONOCYTES # (AUTO) 0.5 /CMM (0.1-1.30); MONOCYTES % (AUTO) 5.9 % (2.0-12.0); NEUTROPHILS # (AUTO) 6.2 /CMM (1.8-8.9); NEUTROPHILS % (AUTO) 71.2 % (43.0-81.0); PLATELET COUNT (AUTO) 195 /CMM (150-450); RED BLOOD CELL COUNT(AUTO) 4.39 MIL/uL (4.5-6.0); WHITE BLOOD COUNT (AUTO) 8.7 K/uL (4.3-11.0)
[2018-12-14 06:59] LABS: CALCIUM, SERUM 8.3 mg/dL (8.5-10.1); CARBON DIOXIDE 31 mmol/L (21-32); CHLORIDE 105 mmol/L (98-107); CREATININE 0.8 mg/dL (0.6-1.3); GLUCOSE 114 mg/dL (74-106); MAGNESIUM 1.7 mg/dL (1.8-2.4); PHOSPHORUS 3.3 mg/dL (2.5-4.9); SODIUM SERUM 142 mmol/L (136-145); UREA NITROGEN, BLOOD 14 mg/dL (7-18)
--- NOTE | 2018-12-14 08:00 | NUR ---
ms jenkins patient in the or at this time, for removal of right chest mass. Addendum: 12/14/18 at 1034 by NARINDER LARA RN [id number] documentation disregard, wrong patient entry.
--- NOTE | 2018-12-14 08:00 | NUR ---
MS RN RECEIVED ON BED, AWAKE,ALERT,ORIENTED X2,NOT IN ANY FORM OF DISTRESS,RESPIRATIONS EVEN AND UNLABORED,NO SOB NOTED,DENIES PAIN AT THIS TIME.
[2018-12-14] MEDS ORDERED: CYANOCOBALAMIN 500 MCG TABLET PO SCH (09:00)
--- NOTE | 2018-12-14 09:00 | NUR ---
rn came back fron or, patient is awake,alert,oriented x4, v/s stable, wants to go home already. called dr. young, ok to go home, no need to see a hospitalist. Addendum: 12/14/18 at 1631 by NARINDER LARA RN DISREGARD NOELLE CABRERA PATIENT.
[2018-12-14] MEDS: MEMANTINE HCL 5 MG TABLET PO SCH ×2 (09:29→17:32)
[2018-12-14] MEDS: ACIDOPHILUS/BULGARICUS 1 EACH TAB.CHEW PO SCH (09:29)
[2018-12-14] MEDS: SERTRALINE HCL 25 MG TABLET PO SCH (09:29)
[2018-12-14] MEDS: CHOLECALCIFEROL 1,000 UNIT TABLET (VIT D3) PO SCH (09:29)
[2018-12-14] MEDS: CARBIDOPA/LEVODOPA 25/100 MG 1 UDTAB PO SCH ×3 (09:29→17:31)
[2018-12-14] MEDS: FLUDROCORTISONE 0.1 MG TABLET PO SCH ×2 (09:29→17:31)
[2018-12-14] MEDS: ENSURE ENLIVE CHOC 237 ML CAN PO SCH (09:31)
--- NOTE | 2018-12-14 09:35 | NUR ---
MS RN BREAKFAST SERVED,DUE MEDS GIVEN,TOLERATED WELL. PATIENT WILL BE DISCHARGE TO REHAB TODAY.
--- NOTE | 2018-12-14 10:00 | NUR ---
ms music intern instructions given, to have a follow up w/ dr. young in 2 weeks, went home accompanied by . Addendum: 12/14/18 at 1630 by NARINDER LARA RN WRONG PT DOCUMENTATION, DISREGARD CHARTING
--- NOTE | 2018-12-14 10:10 | NUR ---
MS MELENDEZ WAS SEEN BY ROBERTA HIGUERA W/ ORDERS MADE AND CARRIED OUT.
[2018-12-14] MEDS ORDERED: POTASSIUM CHLORIDE 20 MEQ TAB.PRT.SR PO ONE (12:00)
[2018-12-14] MEDS: Magnesium 1GM/D5W 100ML PREMIX 100 ML IV SCH ×2 (12:21→14:49)
--- NOTE | 2018-12-14 16:36 | NUR ---
MS RN READY TO GO TO REHAB, REPORT GIVEN TO [facility] RN,ALL NEEDS ATTENDED.
--- NOTE | 2018-12-14 17:30 | NUR ---
MS RN PATIENT TRANSFERRED TO [facility], ALL NEEDS ATTENDED, NO DISTRESS NOTED.
[2018-12-17 10:11] LABS: RENIN, PLASMA <0.167 ng/mL/hr (0.167-5.380)
== END 2018-12-14 18:12 | DRG 640 ==
LOC: ER 17:23 → TELE 20:41 → MED 12-12 12:34
PROVIDERS: ADMIT Hospitalist; ATTEND Nurse Practitioner Acute Care
DX: E87.6 Hypokalemia (principal); E43 Unspecified severe protein-calorie malnutrition; G93.41 Metabolic encephalopathy; Z68.1 Body mass index [BMI] 19.9 or less, adult; E27.40 Unspecified adrenocortical insufficiency; D64.9 Anemia, unspecified; E86.0 Dehydration; E83.39 Other disorders of phosphorus metabolism; D72.829 Elevated white blood cell count, unspecified; I10 Essential (primary) hypertension; G20 Parkinson's disease; F02.80 Dementia in other diseases classified elsewhere, unspecified severity, without behavioral disturbance, psychotic disturbance, mood disturbance, and anxiety; E78.5 Hyperlipidemia, unspecified; R53.1 Weakness; D69.6 Thrombocytopenia, unspecified; F41.9 Anxiety disorder, unspecified; F32.9 Major depressive disorder, single episode, unspecified; N40.0 Benign prostatic hyperplasia without lower urinary tract symptoms; Z66 Do not resuscitate
CPT/HCPCS: 36415; 70450-TC; 71045-TC; 80048-TC; 80053-TC; 80061-TC; 80076-TC; 81000-TC; 82088; 82533; 83735-TC; 84100-TC; 84244; 84443-TC; 84484-TC; 85025-TC; 87081-TC; 97110-TC; 97116-TC; 97530-TC; G0378; J3475; J3480; J3490; J7030; J7050; J7060